=== PATIENT | male | born 1980 | race Caucasian/White ===

== ENCOUNTER 2022-01-29 14:07 | Emergency (ER) | payer OTHER ==
[2022-01-29 14:49] VITALS: BP 122/76; PULSE 83; RESP 18; BMI 29.8
[2022-01-29] MEDS ORDERED: LORazepam 2 MG/ML SDV VIAL IVPUSH ONE (15:01)
[2022-01-29 16:11] LABS: BASO % 0.4 % (0-2.0); EOS % 2.8 % (0-4.5); HEMATOCRIT 44.7 % (35.4-49); LYMPH % 31.3 % (8-40); MCH 28.9 pg (25.7-33.7); MCHC 33.6 g/dl (32.0-35.9); MEAN CELL VOLUME 85.9 fl (80-96); MEAN PLT VOLUME 8.5 fl (7.5-11.1); NEUT % 58.5 % (42.8-82.8); PLATELET COUNT 206 10^3/uL (134-434); RDW 13.8 % (11.9-15.9); WHITE BLOOD COUNT 5.7 K/mm3 (4.0-10.0)
[2022-01-29 16:27] LABS: CALCIUM 8.7 mg/dL (8.5-10.1)
[2022-01-29 16:28] LABS: ALBUMIN 3.8 g/dl (3.4-5.0); BLOOD UREA NITROGEN 6.9 mg/dL (7-18)
[2022-01-29 16:31] LABS: CREATININE 0.7 mg/dL (0.55-1.3)
[2022-01-29 16:32] LABS: BILIRUBIN,TOTAL 0.5 mg/dL (0.2-1)
[2022-01-29 16:33] LABS: TOT PROT 7.2 g/dl (6.4-8.2)
== END 2022-01-29 18:20 | disposition left against medical advice (07) ==
LOC: JER 14:07
PROC: 3E033GC Introduction of Other Therapeutic Substance into Peripheral Vein, Percutaneous Approach (ICD-10-PCS; principal; 2022-01-29)
DX: R56.9 Unspecified convulsions (principal)
CPT/HCPCS: 0241U-QW; 36415; 71045-TC-FY; 80053; 82550; 82553; 83735; 84484; 85025; 99285-25